=== PATIENT | male | born 1990 | race Two or more races ===

== ENCOUNTER → 2020-07-22 | Outpatient (CLI) | payer OTHER ==
[~2020-07-22] MED LIST: NO MEDS PER PATIENT
== END | disposition home or self-care (01) ==
LOC: STAR 13:18
PROVIDERS: ATTEND Anesthesiology
DX: Z01.812 Encounter for preprocedural laboratory examination (principal); Z20.828 Contact with and (suspected) exposure to other viral communicable diseases
CPT/HCPCS: 36415; 87635

== ENCOUNTER 2020-07-26 10:25 | Day surgery (SDC) | payer OTHER ==
[~2020-07-26] VITALS: Ht 167.6 cm; Wt 84.9 kg
[~2020-07-26 10:25] MED LIST changes: +FENTANYL PF 250 MCG/5ML ONE; +MIDAZOLAM 1 MG/ML, 2ML ONE; -NO MEDS PER PATIENT
[2020-07-26] MEDS ORDERED: LACTATED RINGERS 1,000 ML IV SCH (10:48)
[2020-07-26 10:57] VITALS: BP 124/85
[2020-07-26] MEDS ORDERED: CHLORHEXIDINE 15 ML UDC MM ONE (11:00)
[2020-07-26] MEDS ORDERED: NO MEDS PER PATIENT (11:07)
[2020-07-26] MEDS ORDERED: ROPIvacaine/PF 0.5%, 30 ML ONE (11:26)
[2020-07-26] MEDS ORDERED: LIDOCAINE/PF 1%-EPI 1:200K, 30 ML ONE (11:26)
[2020-07-26] MEDS ORDERED: GLYCOPYRROLATE 0.2MG/1ML, 5ML ONE (11:38)
[2020-07-26] MEDS ORDERED: ROCURONIUM 10 MG/ML,10ML ONE (11:38)
[2020-07-26] MEDS ORDERED: NEOSTIGMINE 1 MG/ML, 10ML ONE (11:38)
[2020-07-26] MEDS ORDERED: DEXAMETHASONE 4 MG/ML, 1ML ONE (11:38)
[2020-07-26] MEDS ORDERED: CEFAZOLIN 1,000 MG ONE (11:38)
[2020-07-26] MEDS ORDERED: ONDANSETRON 2MG/ML, 2ML ONE ×2 (11:38→14:09)
[2020-07-26] MEDS ORDERED: PROPOFOL 10 MG/ML, 20ML ONE (11:38)
[2020-07-26] MEDS ORDERED: MEPERIDINE/PF 25MG/0.5ML IVPush PRN (12:30)
[2020-07-26] MEDS ORDERED: HYDROmorphone 1 MG/ML, 1ML INJ IVPush PRN (12:30)
[2020-07-26] MEDS ORDERED: ACETAMINOPHEN 325 MG TABLET PO PRN (12:30)
[2020-07-26] MEDS ORDERED: DIPHENHYDRAMINE 50 MG/ML, 1ML IVPush PRN (12:30)
[2020-07-26] MEDS ORDERED: PROMETHAZINE 25 MG/ML, 1ML IVPush PRN (12:30)
[2020-07-26] MEDS ORDERED: OXYcodone 5 MG/5 ML ORAL.SOL UDC PO PRN (12:30)
[2020-07-26] MEDS ORDERED: ONDANSETRON 2MG/ML, 2ML IVPush PRN (12:30)
[2020-07-26] MEDS ORDERED: KETOROLAC 30 MG/1 ML ONE (13:37)
[2020-07-26] MEDS ORDERED: HYDROmorphone 1 MG/ML, 1ML INJ ONE (13:43)
[2020-07-26] MEDS ORDERED: FENTANYL PF 100 MCG/2ML ONE (13:43)
[2020-07-26] MEDS ORDERED: OXYcodone 5 MG/5 ML ORAL.SOL UDC ONE (13:44)
[2020-07-26] MEDS: FENTANYL PF 100 MCG/2ML IV PRN ×2 (13:53→14:14)
[2020-07-26] MEDS ORDERED: KETOROLAC 30 MG/1 ML IVPush ONE (14:00)
[2020-07-26] MEDS ORDERED: PROMETHAZINE 25 MG/ML, 1ML ONE (14:25)
== END 2020-07-26 17:40 | disposition home or self-care (01) ==
LOC: OUT 10:25
PROVIDERS: ATTEND Orthopaedic Surgery
DX: S83.014A Lateral dislocation of right patella, initial encounter (principal); S83.241A Other tear of medial meniscus, current injury, right knee, initial encounter; M25.361 Other instability, right knee; M65.861 Other synovitis and tenosynovitis, right lower leg; G89.18 Other acute postprocedural pain; Z79.899 Other long term (current) drug therapy; Z87.891 Personal history of nicotine dependence; X58.XXXA Exposure to other specified factors, initial encounter; Y93.89 Activity, other specified; Y92.89 Other specified places as the place of occurrence of the external cause; Y99.0 Civilian activity done for income or pay
CPT/HCPCS: 27420; 29873; 29876; 29881; 64447; 73560; C1713; C1762; J0690; J1100; J1885; J2250; J2405; J2704; J2710; J2795; J3010; J3490; J7120; 76000